=== PATIENT | male | born 1965 | race Caucasian/White ===

== ENCOUNTER 2020-12-03 10:40 | Emergency (ER) | payer MEDICAID, OTHER ==
[~2020-12-03] VITALS: Ht 170.2 cm; Wt 225.0 kg
[~2020-12-03 10:40] MED LIST: NO HOME MEDS
[2020-12-03] MEDS ORDERED: ALBUTEROL INHALER 1 PUFF/90 MCG INHALER IH PRN (11:20)
[2020-12-03 11:23] VITALS: BP 131/88
[2020-12-03 11:49] LABS: BASOPHILS # (AUTO) 0.1 X10'3 (0-0.2); EOSINOPHILS % (AUTO) 0.7 % (0-6); LYMPHOCYTES # (AUTO) 2.1 X10'3 (1.1-4.8); LYMPHOCYTES % (AUTO) 31.6 % (21-51); MEAN CORPUSCULAR HEMOGLOBIN 30.3 PG (27.0-31.0); MEAN CORPUSCULAR HGB CONC 32.9 g/dL (33.0-36.5); MEAN PLATELET VOLUME 7.6 FL (7.4-10.4); MONOCYTES # (AUTO) 0.5 X10'3 (0-0.9); MONOCYTES % (AUTO) 7.8 % (2-12); NEUTROPHILS # (AUTO) 3.9 X10'3 (1.8-7.7); NEUTROPHILS % (AUTO) 58.9 % (42-75); PLATELET COUNT 209 X10'3 (140-440); RED BLOOD COUNT 6.75 X10'6 (4.70-6.10); RED CELL DISTRIBUTION WIDTH 16.1 % (11.5-14.5); WHITE BLOOD COUNT 6.6 X10'3 (4.5-11.0)
[2020-12-03 11:54] LABS: HEMATOCRIT 62.1 % (42.0-52.0); HEMOGLOBIN 20.4 g/dl (14.0-17.9)
[2020-12-03 12:05] LABS: ALANINE AMINOTRANSFERASE 118 U/L (12-78); ALBUMIN 3.3 G/DL (3.4-5.0); ALBUMIN/GLOBULIN RATIO 0.7 (1.1-1.5); ALKALINE PHOSPHATASE 106 IU/L (46-116); ANION GAP 3 (8-16); ASPARTATE AMINO TRANSFERASE 33 U/L (10-37); BILIRUBIN,TOTAL 0.7 MG/DL (0.1-1.0); BLOOD UREA NITROGEN 13 MG/DL (7-18); BUN/CREATININE RATIO 15.1 (5.4-32.0); C-REACTIVE PROTEIN 0.24 MG/DL (0.0-0.5); CALCIUM 9.3 MG/DL (8.5-10.1); CHLORIDE 102 MMOL/L (99-107); CREATININE 0.86 MG/DL (0.60-1.10); GLUCOSE 178 MG/DL (70-104); POTASSIUM 4.6 MMOL/L (3.5-5.1); SODIUM 144 MMOL/L (135-145); TOTAL CARBON DIOXIDE 39.4 MMOL/L (24-32); eGFR > 90 ML/MIN
[2020-12-03] MEDS ORDERED: dexamethasone sod phosphate 10mg/ml inj IV STA (12:21)
[2020-12-03] MEDS ORDERED: ipratropium/albuterol 3ml nebule NEB ONE (12:45)
[2020-12-03] MEDS ORDERED: methylPREDNISolone sod succ 125mg/2ml vial IV ONE (12:45)
[2020-12-03] MEDS ORDERED: albuterol 2.5 MG/3 ML nebule NEB PRN (12:50)
[2020-12-03] MEDS ORDERED: ALBU6.7H9 INH (12:58)
[2020-12-03] MEDS ORDERED: PRED10TA23 PO (12:58)
[2020-12-03] MEDS ORDERED: LEVO750T46 PO (12:58)
== END 2020-12-03 13:57 | disposition left against medical advice (07) ==
LOC: ER 10:41
DX: J18.9 Pneumonia, unspecified organism (principal); Z20.822 Contact with and (suspected) exposure to COVID-19; J44.1 Chronic obstructive pulmonary disease with (acute) exacerbation; J96.01 Acute respiratory failure with hypoxia; R51.9 Headache, unspecified; R05.9 Cough, unspecified; E11.9 Type 2 diabetes mellitus without complications; F17.200 Nicotine dependence, unspecified, uncomplicated; Z79.2 Long term (current) use of antibiotics; Z79.899 Other long term (current) drug therapy
CPT/HCPCS: 36415; 71045; 80053; 84145; 85025; 86140; 87635; 99291; C9803

== ENCOUNTER 2021-07-09 16:34 | Emergency (ER) | payer MEDICARE, MEDICAID ==
[~2021-07-09] VITALS: Ht 170.2 cm; Wt 101.4 kg
[~2021-07-09 16:34] MED LIST changes: +ALBU6.7H9 INH
[2021-07-09] MEDS ORDERED: ondansetron 4mg rapidly disintigrating tab PO ONE (17:50)
[2021-07-09] MEDS ORDERED: HYDROcodone/acetaminophen 5mg/325mg tablet PO ONE (17:50)
[2021-07-09 18:33] VITALS: BP 130/90
[2021-07-09 18:44] LABS: BASOPHILS # (AUTO) 0.1 X10'3 (0-0.2); BASOPHILS % (AUTO) 0.8 % (0-1); EOSINOPHILS # (AUTO) 0.1 X10'3 (0-0.9); EOSINOPHILS % (AUTO) 1.5 % (0-6); LYMPHOCYTES # (AUTO) 1.9 X10'3 (1.1-4.8); LYMPHOCYTES % (AUTO) 26.9 % (21-51); MEAN CORPUSCULAR HGB CONC 31.9 g/dL (33.0-36.5); MEAN CORPUSCULAR VOLUME 94.2 FL (78-98); MEAN PLATELET VOLUME 8.2 FL (7.4-10.4); MONOCYTES # (AUTO) 0.7 X10'3 (0-0.9); MONOCYTES % (AUTO) 9.5 % (2-12); NEUTROPHILS # (AUTO) 4.4 X10'3 (1.8-7.7); NEUTROPHILS % (AUTO) 61.3 % (42-75); PLATELET COUNT 222 X10'3 (140-440); RED BLOOD COUNT 6.44 X10'6 (4.70-6.10); RED CELL DISTRIBUTION WIDTH 16.7 % (11.5-14.5); WHITE BLOOD COUNT 7.2 X10'3 (4.5-11.0)
[2021-07-09 18:58] LABS: HEMOGLOBIN 19.4 g/dl (14.0-17.9)
[2021-07-09 18:59] LABS: HEMATOCRIT 60.6 % (42.0-52.0)
[2021-07-09 19:09] LABS: ALANINE AMINOTRANSFERASE 31 U/L (12-78); ALBUMIN 2.8 G/DL (3.4-5.0); ALBUMIN/GLOBULIN RATIO 0.7 (1.1-1.5); ALKALINE PHOSPHATASE 98 IU/L (46-116); ANION GAP 3 (8-16); ASPARTATE AMINO TRANSFERASE 22 U/L (10-37); BILIRUBIN,TOTAL 0.8 MG/DL (0.1-1.0); BLOOD UREA NITROGEN 19 MG/DL (7-18); CALCIUM 8.7 MG/DL (8.5-10.1); CHLORIDE 102 MMOL/L (99-107); CREATININE 1.12 MG/DL (0.60-1.10); GLUCOSE 138 MG/DL (70-104); MAGNESIUM 1.8 MG/DL (1.5-2.4); SODIUM 137 MMOL/L (135-145); TOTAL CARBON DIOXIDE 32.5 MMOL/L (24-32); TOTAL PROTEIN 6.9 G/DL (6.4-8.2); eGFR 68 ML/MIN
[2021-07-09 19:12] LABS: POTASSIUM 4.9 MMOL/L (3.5-5.1)
[2021-07-09] MEDS ORDERED: sulfamethoxazole/trimethoprim DS (800/160mg) tablet PO ONE (19:30)
[2021-07-09] MEDS ORDERED: HYDR-3965 PO (19:33)
[2021-07-09] MEDS ORDERED: SULF1TAB49 PO (19:33)
== END 2021-07-09 19:46 | disposition home or self-care (01) ==
LOC: ER 16:35
DX: L03.116 Cellulitis of left lower limb (principal); L03.115 Cellulitis of right lower limb; J44.9 Chronic obstructive pulmonary disease, unspecified; I73.9 Peripheral vascular disease, unspecified; E11.9 Type 2 diabetes mellitus without complications; Z79.899 Other long term (current) drug therapy
CPT/HCPCS: 36415; 80053; 83605; 83735; 83880; 84145; 84484; 85025; 87040; 93005; 99284

== ENCOUNTER 2024-04-05 09:56 | Day surgery (SDC) | payer BC, MEDICAID ==
[2024-04-04 15:49] LABS: BASOPHILS # (AUTO) 0.1 X10'3 (0-0.2); EOSINOPHILS # (AUTO) 0.1 X10'3 (0-0.9); HEMATOCRIT 39.7 % (42.0-52.0); HEMOGLOBIN 13.6 g/dl (14.0-17.9); MEAN PLATELET VOLUME 6.7 FL (7.4-10.4)
[2024-04-04 15:51] LABS: BASOPHILS % (AUTO) 0.5 % (0-1); EOSINOPHILS % (AUTO) 0.5 % (0-6); LYMPHOCYTES # (AUTO) 7.6 X10'3 (1.1-4.8); LYMPHOCYTES % (AUTO) 59.1 % (21-51); MEAN CORPUSCULAR HEMOGLOBIN 32.2 PG (27.0-31.0); MEAN CORPUSCULAR HGB CONC 34.3 g/dL (33.0-36.5); MONOCYTES # (AUTO) 1.4 X10'3 (0-0.9); MONOCYTES % (AUTO) 10.5 % (2-12); NEUTROPHILS # (AUTO) 3.8 X10'3 (1.8-7.7); NEUTROPHILS % (AUTO) 29.4 % (42-75); PLATELET COUNT 397 X10'3 (140-440); RED BLOOD COUNT 4.22 X10'6 (4.70-6.10); RED CELL DISTRIBUTION WIDTH 14.3 % (11.5-14.5); WHITE BLOOD COUNT 12.9 X10'3 (4.5-11.0)
[2024-04-04 16:01] LABS: ALBUMIN 3.2 G/DL (3.4-5.0); BLOOD UREA NITROGEN 21 MG/DL (7-18); BUN/CREATININE RATIO 22.8 (10.0-20.0); CALCIUM 8.4 MG/DL (8.5-10.1); CHLORIDE 99 MMOL/L (99-107); CREATININE 0.92 MG/DL (0.60-1.10); TOTAL CARBON DIOXIDE 31.5 MMOL/L (24-32); eGFR 84 ML/MIN
[2024-04-04 16:04] LABS: APTT 30 SECONDS (22-32); PROTHROMBIN TIME 10.9 SECONDS (9.0-12.0)
[2024-04-04 16:54] LABS: ANION GAP 2 (8-16); GLUCOSE 256 MG/DL (70-104); POTASSIUM 4.8 MMOL/L (3.5-5.1); SODIUM 132 MMOL/L (135-145)
[2024-04-04 17:12] LABS: SMUDGE CELLS 3+; TOTAL CELLS COUNTED 100
[2024-04-04 17:15] LABS: PLATELET ESTIMATE NORMAL
[2024-04-04 17:16] LABS: TEAR DROP CELLS 2+
[~2024-04-05] VITALS: Ht 170.2 cm; Wt 113.4 kg
[2024-04-05] VITALS (11 sets, daily range): BP systolic 121–156; BP diastolic 64–75; PULSE 63–71; RESP 12–21; TEMP 98.1; O2SAT 92–96
[~2024-04-05 09:56] MED LIST changes: +ALBU6.7H14 INH; -ALBU6.7H9 INH
[2024-04-05] MEDS ORDERED: LORazepam 0.5 MG tablet PO PRN (10:25)
[2024-04-05] MEDS ORDERED: normal saline 1,000 ML IV SCH (10:25)
[2024-04-05] MEDS ORDERED: diphenhydrAMINE 25mg capsule PO PRN (10:25)
[2024-04-05] MEDS ORDERED: LIDOcaine 1% (10mg/ml) 2ml vial ONE (11:16)
[2024-04-05] MEDS ORDERED: verapamil 2.5 mg/ml inj IV ONE (11:16)
[2024-04-05] MEDS ORDERED: iohexol 350MG/ML 100ml bottle IV ONE (11:17)
[2024-04-05] MEDS ORDERED: midazolam 1 mg/ML 2ml injection ONE (11:17)
[2024-04-05] MEDS ORDERED: iohexol 350 MG/ML 50ML vial IV ONE ×2 (11:17→12:31)
[2024-04-05] MEDS ORDERED: fentaNYL/PF 50MCG/1 ML 2ML syringe ONE (11:17)
[2024-04-05] MEDS ORDERED: heparin 1,000unit/ml 10ml vial 10 ML ONE (11:17)
[2024-04-05] MEDS ORDERED: nitroGLYCERIN 500mcg/5mL D5W 5 ML IV ONE (11:18)
[2024-04-05] MEDS ORDERED: POTA8TAB69 PO (11:51)
[2024-04-05] MEDS ORDERED: NOVLG SQ (11:51)
[2024-04-05] MEDS ORDERED: MULT-1168 PO (11:51)
[2024-04-05] MEDS ORDERED: DIGO250T2 PO (11:51)
[2024-04-05] MEDS ORDERED: ATOR40TA72 PO (11:51)
[2024-04-05] MEDS ORDERED: FURO20TA4 PO (11:51)
[2024-04-05] MEDS ORDERED: DULA1.5P SQ (11:51)
[2024-04-05] MEDS ORDERED: FLUT1BLS4 INH (11:51)
[2024-04-05] MEDS ORDERED: ALBU18HF2 INH (11:51)
[2024-04-05] MEDS ORDERED: EMPA25TA PO (11:51)
[2024-04-05] MEDS ORDERED: METF-438 PO (11:51)
[2024-04-05] MEDS ORDERED: LANTUS SQ (11:51)
[2024-04-05] MEDS ORDERED: APIX5TAB3 PO (11:51)
[2024-04-05] MEDS ORDERED: DILT240T12 PO (11:51)
[2024-04-05 12:44] LABS: ISTAT HGB ART 12.6 g/dl (14.0-17.9); ISTAT Hct ART 37 %PCV (42-52); ISTAT O2 SATURATION ARTERIAL 88 % (95-98); ISTAT SOURCE ART
[2024-04-05 12:59] LABS: ISTAT HGB MIX 12.2 g/dl (14.0-17.9); ISTAT Hct MIX 36 %PCV (42-52); ISTAT O2 SATURATION MIX VENOUS 50 % (60-80); ISTAT SOURCE VEN
[2024-04-05] MEDS ORDERED: HYDROcodone/acetaminophen 5mg/325mg tablet PO PRN (13:50)
[2024-04-05] MEDS ORDERED: normal saline 1000ml 1,000 ML IV SCH (13:50)
[2024-04-05] MEDS ORDERED: HYDROcodone/acetaminophen 10/325mg tab PO PRN (13:50)
[2024-04-05] MEDS ORDERED: pneumococcal 23-VAL P-sac vacc 25 mcg/0.5ml vial IMVAC ONE (14:35)
[2024-04-05] MEDS ORDERED: PNEUMOC 20-VAL CONJ-DIP CRM/PF 0.5 ML SYRINGE IMVAC ONE (14:40)
== END 2024-04-05 18:15 | disposition home or self-care (01) ==
LOC: SSTAY O 09:56
PROVIDERS: ATTEND Internal Medicine Cardiovascular Disease
DX: R94.39 Abnormal result of other cardiovascular function study (principal); I25.10 Atherosclerotic heart disease of native coronary artery without angina pectoris; I50.30 Unspecified diastolic (congestive) heart failure; R06.00 Dyspnea, unspecified; R60.9 Edema, unspecified; I48.0 Paroxysmal atrial fibrillation; E11.9 Type 2 diabetes mellitus without complications; J44.9 Chronic obstructive pulmonary disease, unspecified; E78.5 Hyperlipidemia, unspecified; Z86.16 Personal history of COVID-19; Z98.890 Other specified postprocedural states; Z79.84 Long term (current) use of oral hypoglycemic drugs; Z79.899 Other long term (current) drug therapy
CPT/HCPCS: 36415; 80048; 82803; 82948; 85014; 85025; 85610; 85730; 93005; 93460; 99152; 99153; A6258; J1644; J2003; J2250; J3010; J3490; J7030; Q9967; 76937; 85007; A4615; A6402; C1725; C1751; C1894